=== PATIENT | male | born 1960 | race Caucasian/White ===

== ENCOUNTER 2016-07-23 20:21 | Emergency (ER) | payer BC, OTHER ==
[~2016-07-23] VITALS: Ht 162.6 cm; Wt 69.0 kg
[2016-07-23 20:31] VITALS: Ht 162.6 cm; Wt 69.0 kg
[2016-07-23] MEDS ORDERED: CEFTRIAXONE 1 GM INJ IM ONE (22:00)
--- NOTE | 2016-07-23 23:01 | RADRPT ---
PROCEDURE: X-ray left foot CLINICAL INDICATION: Nail in the left foot TECHNIQUE: 3 views left foot. COMPARISON: None FINDINGS: No acute fracture or dislocation. Soft tissues unremarkable. No evident retained radiopaque foreign material in the soft tissues of the left foot. IMPRESSION: 1. No evident retained radiopaque foreign material in the soft tissues of the left foot. 2. No acute fracture. RPTAT: [facility] Physician Sheree Date Time Electronically viewed and signed by Marcial Tyson Physician on 07/23/2016 23:00 RS/
[2016-07-23] MEDS ORDERED: CEPH-443 PO (23:43)
[2016-07-23] MEDS ORDERED: SULF1TAB31 PO (23:43)
--- NOTE | 2016-07-23 23:54 | ERD ---
ER Documentation Chief Complaint Date/Time DATE: 07/23/16 TIME: 23:49 Chief Complaint Pt with nail puncture to L foot today. Tetanus shot 5 months ago. HPI This is a 56-year-old male presents to the ER after he got a puncture wound to his left foot. 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 Patient is diabetic and is unable to feel any pain. She notes that he was bleeding Saturday night and noticed the nail. This morning patient's was looking at patient's foot and noticed that there was yellow discharge and redness to the area. Patient has not had any fevers or chills. Patient has a recent tetanus shot that was given to him 5 months ago. Patient is compliant with his medications. ROS 12 point review of systems was done, all negative except per HPI. Medications Home Meds Active Scripts Cephalexin* (Keflex*) 500 Mg Capsule, 500 MG PO BID for 7 Days, CAP Prov:BARBRA DURAN 07/23/16 Sulfamethoxazole/Trimethoprim* (Bactrim Ds* Tablet) 1 Each Tablet, 1 TAB PO BID , #7 TAB Prov:BARBRA DURAN 07/23/16 PMhx/Soc History of Surgery: No Anesthesia Reaction: No Hx Neurological Disorder: No Hx Respiratory Disorders: No Hx Cardiac Disorders: Yes (HTN) Hx Psychiatric Problems: No Hx Miscellaneous Medical Probl: Yes (DM, NEUROPATHY.) Hx Alcohol Use: Yes (OCC) Hx Substance Use: No Hx Tobacco Use: No Smoking Status: Never smoker Physical Exam Vitals Vital Signs Date Time Temp Pulse Resp B/P Pulse Ox O2 Delivery O2 Flow Rate FiO2 07/23/16 20:31 97.9 96 18 183/104 97 Physical Exam GENERAL: The patient is well developed and appropriate for usual state of health , in no apparent distress. HEENT: Atraumatic. CHEST: Clear to auscultation bilaterally. There are no rales, wheezes or rhonchi. HEART: Regular rate and rhythm. No murmurs, clicks, rubs or gallops. ABDOMEN: Soft, nontender and nondistended. Good bowel sounds. No rebound or guarding. No gross peritonitis. No gross organomegaly or masses. No Tirado sign or McBurney point tenderness. BACK: No midline or flank tenderness. EXTREMITIES: +2 dorsalis pedis and posterior tibialis pulses. No focal swelling or erythema. Full range of motion. Grossly neurovascularly intact. NEURO: Alert and oriented. SKIN: There is a puncture wound the middle of the plantar foot with surrounding erythema and some yellow discharge. Results 24 hrs Current Medications Medications (Trade) Dose Ordered Sig/Grace Route PRN Reason Start Time Stop Time Status Last Admin Dose Admin Ceftriaxone Sodium (Rocephin) 1 gm ONCE ONCE IM 07/23/16 22:00 07/23/16 22:02 DC 07/23/16 22:16 Procedures/MDM This is a 56-year-old male presents to the ER with a puncture wound to his left foot. Patient is diabetic and I am concerned that this may become a serious cellulitic infection. She was given a shot of Rocephin here in the ER. He will be sent home with both Bactrim and Keflex. He was told to return to ER in 48 hours for recheck. At this time patient is afebrile and well-appearing. I doubt sepsis,, deep space infection, osteomyelitis. There is no evidence of fractures or dislocations on x-ray. Patient needs to return to ER sooner if symptoms worsen. He also needs to follow-up with his primary care doctor within 1-2 days. My medical decision making was shared with the patient he understands and agrees with plan. Patient was also given information for the amputation prevention center for further care, as this may take a while to heal. Departure Diagnosis: Primary Impression: Cellulitis Condition: Stable Patient Instructions: Cellulitis Referrals: [facility] Additional Instructions: Regrese a estas instalaciones dentro de [facility] para un examen de seguimiento.Regrese antes si sawant condicin se empeora. BARBRA DURAN July 23, 2016 23:54
[2016-07-23 23:55] VITALS: BP 138/89; PULSE 78; RESP 20; TEMP 98.3
== END 2016-07-23 23:56 | disposition home or self-care (01) ==
LOC: FTE 20:21
DX: L03.116 Cellulitis of left lower limb (principal); I10 Essential (primary) hypertension; E11.9 Type 2 diabetes mellitus without complications
CPT/HCPCS: 73630; 96372; J0696; Z7502

== ENCOUNTER 2016-08-31 19:26 | Inpatient (IN) | payer BC ==
[~2016-08-31] VITALS: Ht 172.7 cm; Wt 69.5 kg
[~2016-08-31 19:26] MED LIST: CEPH-443 PO; SULF1TAB31 PO
[2016-08-31] MEDS ORDERED: VANCOMYCIN 1 GM (PMX) 250 ML IVPB ONE (20:30)
[2016-08-31] MEDS ORDERED: PIPER-TAZO 3.375 GM IV (PMX) 100 ML IVPB ONE (20:30)
[2016-08-31] MEDS ORDERED: IBUPROFEN 600 MG TAB PO ONE (20:30)
[2016-08-31] MEDS ORDERED: SOD CHLORIDE 0.9% 2,110 ML IV ONE (20:30)
[2016-08-31 20:36] LABS: ADD SCAN DIFF NO
[2016-08-31 20:39] LABS: BASOPHILS % 0.2 % (0.0-2.0); EOSINOPHILS # 0.3 10^3/ul (0.0-0.5); EOSINOPHILS % 2.1 % (0.0-7.0); HEMATOCRIT 35.5 % (42.0-52.0); LYMPHOCYTES # 1.6 10^3/ul (0.8-2.9); LYMPHOCYTES % 10.8 % (15.0-51.0); MEAN CORPUSCULAR HEMOGLOBIN 30.7 pg (29.0-33.0); MEAN CORPUSCULAR HGB CONC 33.8 g/dl (32.0-37.0); MEAN CORPUSCULAR VOLUME 90.8 fl (82.0-101.0); MEAN PLATELET VOLUME 10.2 fl (7.4-10.4); MONOCYTE # 1.3 10^3/ul (0.3-0.9); MONOCYTES % 8.7 % (0.0-11.0); NEUTROPHIL # 11.7 10^3/ul (1.6-7.5); NEUTROPHILS % 77.7 % (39.0-77.0); PLATELET COUNT 214 10^3/UL (140-415); RED BLOOD COUNT 3.91 10^6/ul (4.70-6.10); RED CELL DISTRIBUTION WIDTH 13.2 % (11.5-14.5); WHITE BLOOD COUNT 15.1 10^3/ul (4.8-10.8)
[2016-08-31 20:53] LABS: INR 0.94; PROTIME 12.6 Sec (12.2-14.2)
[2016-08-31 20:54] LABS: PARTIAL THROMBOPLASTIN TIME 31.3 Sec (25.0-35.0)
[2016-08-31 20:59] LABS: ALBUMIN/GLOBULIN RATIO 1.65
[2016-08-31 21:03] LABS: ALBUMIN 4.8 g/dl (3.3-4.9); BILIRUBIN,INDIRECT 0.7 mg/dl (0-1.1); BILIRUBIN,TOTAL 0.7 mg/dl (0.2-1.3); CALCIUM 9.8 mg/dl (8.4-10.2); CREATININE 1.25 mg/dl (0.61-1.24); POTASSIUM 3.9 mmol/L (3.5-5.1); TOTAL PROTEIN 7.7 g/dl (6.1-8.1)
--- NOTE | 2016-08-31 21:17 | RADRPT ---
PROCEDURE: XR Left Foot CLINICAL INDICATION: Puncture wound TECHNIQUE: AP, oblique, and lateral radiographs were submitted. COMPARISON: 07/23/2016 FINDINGS: Osseous structures: appear well mineralized and intact with no fracture or destructive process iden tified. There is mild calcaneal spurring at the insertion of the Achilles tendon and plantar aponeur osis. Joint spaces: are well maintained, with no significant spurring, erosion or joint effusion evident. Soft tissues: Minimal vascular calcification is evident. No radiopaque foreign body is identified. IMPRESSION: 1. Again no fracture or dislocation is evident. 2. Minimal calcaneal spurring 3. Mild vascular calcification 4. No radiopaque foreign body is evident. Physician Wes Date Time Electronically viewed and signed by Physician Wes on 08/31/2016 21:17 /
--- NOTE | 2016-08-31 21:18 | RADRPT ---
PROCEDURE: XR Chest AP portable CLINICAL INDICATION: Possible sepsis TECHNIQUE: An AP portable radiograph of the chest was submitted. COMPARISON: None. FINDINGS: Support Hardware: None Cardiovascular: The cardiovascular silhouette appears unremarkable. Lung Woo: Minimal discoid atelectasis is seen at the left lung base with the lung woo otherwis e clear. Pleural Spaces: No pneumothorax or pleural effusion is identified. Osseous Structures: The osseous structures appear intact. Soft Tissues: The soft tissues appear unremarkable. IMPRESSION: 1. Minimal discoid atelectasis seen at the left lung base. 2. Otherwise, unremarkable portable chest. Physician Wes Date Time Electronically viewed and signed by Physician Wes on 08/31/2016 21:17 /
[2016-08-31] MEDS ORDERED: SODIUM CHLORIDE 0.9% 1L BAG IV* STA (22:17)
--- NOTE | 2016-08-31 22:53 | ERA ---
ER Documentation Chief Complaint Date/Time DATE: 08/31/16 TIME: 22:53 Chief Complaint punctured wound left foot since 1 month ago HPI This 56-year-old female comes emergency room because he is having increasing left foot pain along the bottom of his foot as well as redness and fever. 1 month ago he had a puncture wound to his left foot with a nail. He was seen and treated with Bactrim and Keflex at that time. Patient seemed to resolve but then got worse again. He is diabetic and his only medication currently is metformin. ROS All systems reviewed and are negative except as per history of present illness. Medications Home Meds Reported Medications Valsartan* (Diovan*) 320 Mg Tablet, 320 MG PO QAM, TAB 08/31/16 Gabapentin* (Gabapentin*) 600 Mg Tablet, 600 MG PO BID, #60 TAB 08/31/16 Metformin* (Glucophage*) 1,000 Mg Tablet, 1000 MG PO BID, #60 TAB 08/31/16 Aspirin* (Aspirin* EC) 81 Mg Tablet.dr, 81 MG PO PRN, TAB 08/31/16 Ranitidine Hcl* (Ranitidine Hcl*) 150 Mg Tablet, 150 MG PO PRN, #30 TAB 08/31/16 Insulin Glargine* (Lantus*) 100 Unit/Ml Soln, 25 UNIT SC QAM Y for PRN, #1 VIAL 08/31/16 Discontinued Scripts Cephalexin* (Keflex*) 500 Mg Capsule, 500 MG PO BID for 7 Days, CAP Prov:ROGER,BARBRA C 07/23/16 Sulfamethoxazole/Trimethoprim* (Bactrim Ds* Tablet) 1 Each Tablet, 1 TAB PO BID , #7 TAB Prov:ROGER,BARBRA C 07/23/16 Allergies Allergies: Coded Allergies: No Known Allergy (Unverified , 08/31/16) PMhx/Soc History of Surgery: No Anesthesia Reaction: No Hx Neurological Disorder: No Hx Respiratory Disorders: No Hx Cardiac Disorders: Yes (HTN) Hx Psychiatric Problems: No Hx Miscellaneous Medical Probl: Yes (DM, NEUROPATHY.) Hx Alcohol Use: Yes (1 glass wine/ week) Hx Substance Use: No Hx Tobacco Use: Yes ("quit years ago") Smoking Status: Former smoker Physical Exam Vitals Vital Signs Date Time Temp Pulse Resp B/P Pulse Ox O2 Delivery O2 Flow Rate FiO2 6/23/17 23:16 98.3 103 22 165/99 100 Room Air 08/31/16 22:11 99.3 105 22 162/92 99 Room Air 08/31/16 19:29 101.0 102 20 121/69 100 Physical Exam Const: [] Mild distress Head: Atraumatic Eyes: Normal Conjunctiva ENT: Normal External Ears, Nose and Mouth. Neck: Full range of motion..~ No meningismus. Resp: Clear to auscultation bilaterally Cardio: Regular tachycardia no murmurs Abd: Soft, non tender, non distended. Normal bowel sounds Skin: No petechiae or rashes Back: No midline or flank tenderness Ext: No cyanosis, left foot with fairly well demarcated erythema along the portion of the sole and medial aspect of the left midfoot with prior puncture wound visible. There is mild swelling as well as calor and tenderness along this area. Neur: Awake and alert and oriented 3, no focal deficits Psych: Normal Mood and Affect Result Diagram: 08/31/16202908/31/16 2030 Results 24 hrs Laboratory Tests Test 08/31/16 20:30 08/31/16 22:23 White Blood Count 15.110^3/ul Red Blood Count 3.9110^6/ul Hemoglobin 12.0g/dl Hematocrit 35.5% Mean Corpuscular Volume 90.8fl Mean Corpuscular Hemoglobin 30.7pg Mean Corpuscular Hemoglobin Concent 33.8g/dl Red Cell Distribution Width 13.2% Platelet Count 13458^3/UL Mean Platelet Volume 10.2fl Neutrophils % 77.7% Lymphocytes % 10.8% Monocytes % 8.7% Eosinophils % 2.1% Basophils % 0.2% Nucleated Red Blood Cells % 0.0/100WBC Neutrophils # 11.710^3/ul Lymphocytes # 1.610^3/ul Monocytes # 1.310^3/ul Eosinophils # 0.310^3/ul Basophils # 0.010^3/ul Nucleated Red Blood Cells # 0.010^3/ul Prothrombin Time 12.6Sec Prothrombin Time Ratio 1.0 INR International Normalized Ratio 0.94 Activated Partial Thromboplast Time 31.3Sec Sodium Level 132mmol/L Potassium Level 3.9mmol/L Chloride Level 93mmol/L Carbon Dioxide Level 32mmol/L Anion Gap 11 Blood Urea Nitrogen 30mg/dl Creatinine 1.25mg/dl Glucose Level 279mg/dl Lactic Acid Level 1.8mmol/L 1.5mmol/L Calcium Level 9.8mg/dl Total Bilirubin 0.7mg/dl Direct Bilirubin 0.00mg/dl Indirect Bilirubin 0.7mg/dl Aspartate Amino Transf (AST/SGOT) 15IU/L Alanine Aminotransferase (ALT/SGPT) 24IU/L Alkaline Phosphatase 71IU/L Total Protein 7.7g/dl Albumin 4.8g/dl Globulin 2.90g/dl Albumin/Globulin Ratio 1.65 Current Medications Medications (Trade) Dose Ordered Sig/Grace Route PRN Reason Start Time Stop Time Status Last Admin Dose Admin Vancomycin HCl 250 ml @ 125 mls/hr ONCE ONCE IVPB 08/31/16 20:30 08/31/16 22:29 DC 08/31/16 21:11 Piperacillin Sod/ Tazobactam Sod (Zosyn 3.375gm/ 100 ml (Pmx)) 100 ml @ 200 mls/hr ONCE ONCE IVPB 08/31/16 20:30 08/31/16 20:59 DC 08/31/16 20:34 Ibuprofen 600 mg 600 mg ONCE ONCE PO 08/31/16 20:30 08/31/16 20:31 DC 08/31/16 20:34 Sodium Chloride (NS) 2,110 ml @ 2,110 mls/hr BOLUS X1 ONCE IV 08/31/16 20:30 08/31/16 21:29 DC 08/31/16 20:33 Sodium Chloride (NS) 2,110 ml BOLUS OVER 2 HOURS STAT IV* 08/31/16 22:17 08/31/16 22:20 DC 08/31/16 22:52 Procedures/MDM Cellulitis in a diabetic foot that failed outpatient treatment with sepsis with hyperglycemia.. Patient's workup began in ED 2 and was administered antibiotics prior to my arrival and prior to blood cultures. Was administered 30 cc/kg gram of IV fluid which will also help treat his hyper glycemia. Also given vacant Zosyn. Ibuprofen helped with his pain any stated he got minimal pain when he was not moving the foot or touching it. I spoke with Dr. Niño , orthopedist, who agrees to consult on the patient. I spoke with Dr. Moore will be admitting the patient to [facility]. library monitor interpretation: Sinus tachycardia followed by normal sinus rhythm without arrhythmia X-ray of right foot interpretation: No fracture dislocation or foreign body Chest x-ray interpretation: I see no acute process. I see no infiltrate, no pneumothorax, no pulmonary edema, no fractures Critical care time 33 minutes: This includes treatment of sepsis in a diabetic patient after failing outpatient treatment, careful fluid administration, repeat visits patient's bedside to reassess status, antibiotic review, chart review, discussion with patient, cash posting specialist, and admitting doctor. This does not include any billable procedures. Departure Diagnosis: Primary Impression: Sepsis due to cellulitis Additional Impressions: Hyperglycemia due to type 2 diabetes mellitus Failure of outpatient treatment Hyponatremia Renal insufficiency Condition: Serious AKI ROSALES DO Aug 31, 2016 22:53
[2016-08-31] MEDS ORDERED: ASPI-664 PO (23:07)
[2016-08-31] MEDS ORDERED: LANT3I SC (23:07)
[2016-08-31] MEDS ORDERED: GABA-526 PO (23:07)
[2016-08-31] MEDS ORDERED: VALS320T11 PO (23:07)
[2016-08-31] MEDS ORDERED: MTF1000T PO (23:07)
[2016-08-31] MEDS ORDERED: RANI150T5 PO (23:07)
[2016-08-31 23:16] VITALS: TEMP 98.3
[2016-09-01] MEDS ORDERED: SOD CHLORIDE 0.9% 1,000 ML IV SCH (00:48)
[2016-09-01] MEDS ORDERED: MAGNESIUM HYDROXIDE 30ML CUP PO PRN (01:00)
[2016-09-01] MEDS ORDERED: ASPIRIN (EC) 81 MG TAB PO PRN (01:00)
[2016-09-01] MEDS ORDERED: DOCUSATE SODIUM 100 MG CAP PO PRN (01:00)
[2016-09-01] MEDS ORDERED: ONDANSETRON 4 MG INJ IV PRN ×2 (01:00)
[2016-09-01] MEDS ORDERED: VANCOMYCIN IV PER PHARMACY XX SCH (01:00)
[2016-09-01] MEDS ORDERED: HYDROCODONE/APAP (5/325) TAB PO PRN (01:00)
[2016-09-01] MEDS ORDERED: NACL 0.9% 3 ML SYG IV SCH (01:00)
[2016-09-01] MEDS ORDERED: ACETAMINOPHEN 325 MG TAB PO PRN ×2 (01:00)
[2016-09-01] MEDS ORDERED: RANITIDINE 150 MG TAB PO PRN (01:00)
[2016-09-01] MEDS ORDERED: ZOLPIDEM 5 MG TAB PO PRN (01:00)
[2016-09-01] MEDS ORDERED: morphine 2 MG INJ IV PRN (01:00)
[2016-09-01 02:30] VITALS: BP 192/108; PULSE 95; RESP 18
[2016-09-01 03:30] VITALS: Ht 172.7 cm; Wt 69.5 kg
[2016-09-01] MEDS: hydrALAzine 20 MG INJ IV PRN (03:46)
[2016-09-01] MEDS: INSULIN GLARGINE [LANtus] 3 ML PEN SC SCH ×2 (03:51→20:40)
[2016-09-01 05:35] LABS: ADD SCAN DIFF NO
[2016-09-01 05:39] LABS: BASOPHIL # 0.1 10^3/ul (0.0-0.1); BASOPHILS % 0.4 % (0.0-2.0); EOSINOPHILS # 0.6 10^3/ul (0.0-0.5); EOSINOPHILS % 4.7 % (0.0-7.0); HEMATOCRIT 31.7 % (42.0-52.0); HEMOGLOBIN 10.4 g/dl (14.0-18.0); LYMPHOCYTES # 1.5 10^3/ul (0.8-2.9); LYMPHOCYTES % 12.6 % (15.0-51.0); MEAN CORPUSCULAR HEMOGLOBIN 29.9 pg (29.0-33.0); MEAN CORPUSCULAR HGB CONC 32.8 g/dl (32.0-37.0); MEAN CORPUSCULAR VOLUME 91.1 fl (82.0-101.0); MEAN PLATELET VOLUME 10.4 fl (7.4-10.4); MONOCYTE # 0.9 10^3/ul (0.3-0.9); MONOCYTES % 7.3 % (0.0-11.0); NEUTROPHILS % 74.6 % (39.0-77.0); PLATELET COUNT 184 10^3/UL (140-415); RED BLOOD COUNT 3.48 10^6/ul (4.70-6.10); RED CELL DISTRIBUTION WIDTH 13.1 % (11.5-14.5)
[2016-09-01 06:13] LABS: CALCIUM 8.2 mg/dl (8.4-10.2); CHOL/HDL RATIO 3.5 RATIO; CREATININE 0.89 mg/dl (0.61-1.24); MAGNESIUM 1.7 mg/dl (1.7-2.5); PHOSPHORUS 2.6 mg/dl (2.5-4.9); POTASSIUM 3.5 mmol/L (3.5-5.1)
--- NOTE | 2016-09-01 06:27 | HP ---
DATE OF ADMISSION: 08/31/2016 CHIEF COMPLAINT: Left foot pain. HISTORY OF PRESENT ILLNESS: The patient is a 56-year-old male with a history of insulin requiring d iabetes, hypertension. The patient presents with increasing left foot pain on the bottom of his delvis t with redness and fever. The patient had a puncture wound in his left foot with a nail 1 month ago . He was treated with Bactrim and Keflex at that time, and it seemed to resolve but then got worse. In regards to diabetes, he states at times he takes insulin and at times he takes metformin. He o nly takes insulin when his sugars are high. The patient has no other complaints at this time. He d enies any previous surgeries. 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 PAST MEDICAL HISTORY: Insulin-requiring diabetes, hypertension. ALLERGIES: NO KNOWN DRUG ALLERGIES. FAMILY HISTORY: Diabetes in multiple family members. SOCIAL HISTORY: Denies any alcohol abuse. Denies drug abuse. He used to smoke but quit many years ago. REVIEW OF SYSTEMS: A 12-point review of systems is negative except what is stated in the HPI. PHYSICAL EXAMINATION: VITAL SIGNS: Temperature is 98.3, T-max is 101.0, pulse 103, respiratory rate 22, blood pressure is 165/99, saturation 100% on room air. GENERAL: No acute distress, alert and oriented. HEENT: Normocephalic, atraumatic. LUNGS: Clear to auscultation. CARDIOVASCULAR: Regular rate and rhythm. ABDOMEN: Nondistended, nontender, soft. EXTREMITIES: No clubbing, cyanosis, or edema. Left foot plantar surface is notable for erythema wi th a puncture wound. LABORATORIES: White count 16.1, hemoglobin 12.0, platelets are 214. Chemistry within normal limits except for sodium 132, chloride 93, carbon dioxide 32, BUN is 30, creatinine is 1.25, glucose 79. INR is 0.94. DIAGNOSTICS: Foot x-ray shows no fracture or dislocation noted, minimal calcaneal spurring, mild va scular congestion, no radiopaque foreign body evident. Chest x-ray shows minimal discoid atelectasi s seen at the left lung base, otherwise unremarkable. ASSESSMENT AND PLAN: 1. Diabetic foot infection. The patient does have erythema in the left foot plantar surface. The patient will need IV antibiotics. ID consult and podiatry consultation. 2. Sepsis secondary to diabetic foot infection. The patient does meat criteria for sepsis with tac hycardia, fever, and leukocytosis. Once again, sepsis is secondary to diabetic foot infection. 3. Acute versus chronic kidney disease. The patient does have kidney disease. He likely does have underlying diabetic nephropathy. We will treat with IV fluids for now and monitor. 4. Diabetes. Continue home regimen. We will check an A1c. 5. Hypertension. Continue home medications. 6. Prophylaxis: SCDs. Dictated By: CHERRI LOVETT MD BS/NTS Conf#: [id number] DID#: [id number]
[2016-09-01] MEDS: PIPER-TAZO 3.375 GM IV (PMX) 100 ML IVPB SCH ×3 (06:28→17:29)
[2016-09-01 07:00] VITALS: BP 167/91; RESP 20
[2016-09-01] MEDS: INSULIN ASPART [NOVOLOG] 3 ML PEN SC SCH ×4 (07:50→20:40)
[2016-09-01] MEDS ORDERED: INSULIN ASPART [NOVOLOG] 3 ML PEN SC SCH (07:50)
[2016-09-01] MEDS ORDERED: VANCOMYCIN 1 GM in NS 250 ML IVPB SCH (08:00)
[2016-09-01] MEDS: VALSARTAN 160 MG TAB PO SCH (08:20)
[2016-09-01] MEDS: GABAPENTIN 300 MG CAP PO SCH ×2 (08:20→20:34)
--- NOTE | 2016-09-01 10:08 | CONS ---
DATE OF ADMISSION: 08/31/2016 DATE OF CONSULTATION: TYPE OF CONSULTATION: Orthopedic CHIEF COMPLAINT: Left foot infection. HISTORY OF PRESENT ILLNESS: The patient is a 56-year-old male diabetic, who a month ago had a punct ure wound to the foot. The patient initially seen in the emergency room and treated with oral antib iotics. The patient is now admitted due to persisting pain and swelling. Currently, patient is com fortable. He is afebrile. He denies any fever or chills. He has not had any drainage. He is ambu latory. His temperature is 98.3. White cell count 16.1. X-ray is negative for any foreign body, o r osteomyelitis, or any swelling. PHYSICAL EXAMINATION: There is no drainage. There is a healed scab on the bottom of the mid foot. There is slight surrounding redness. No fluctuance. No palpable abscess. The patient has no pain on flexion, extension of the toes and the ankle. IMPRESSION: Cellulitis, left foot. RECOMMENDATION: Continue IV antibiotic treatment. At this point, there is no indication of any abs cess that would require drainage. We will continue to monitor his progress. Dictated By: TERESA CUNNINGHAM/ADARSH Conf#: [id number] DID#: [id number]
--- NOTE | 2016-09-01 11:26 | PN ---
Date/Time of Note Date/Time of Note DATE: 09/01/16 TIME: 11:17 Assessment/Plan VTE Prophylaxis VTE Prophylaxis Intervention: SCD's Lines/Catheters IV Catheter Type (from Rust): Peripheral IV Urinary Cath still in place: No Assessment/Plan Assessment/Plan 1. Diabetic foot infection. left plantal surface erythema with possible fluid collection underneath, concerned about abscess 2. Sepsis 2/2 left foot cellulitis/abscess 3. BRENDEN on CKD 2/2 pre renal azotemia 4. Diabetes type II 5. Hypertension. Continue home medications. 6. Prophylaxis: SCDs podiatry consult Dr.Robert Diaz has been consulted on the case IV abx D/c IV fluids Subjective 24 Hr Interval Summary Free Text/Dictation no acute events, S/p Orthopedic surgery consultatio- no acute distress Exam/Review of Systems Vital Signs Vitals Vital Signs Date Time Temp Pulse Resp B/P Pulse Ox O2 Delivery O2 Flow Rate FiO2 09/01/16 07:00 97.5 92 20 167/91 98 09/01/16 02:30 Room Air Intake and Output 08/31/16 08/31/16 09/01/16 15:00 23:00 07:00 Intake Total 540 ml Output Total 600 ml Balance -60 ml Exam GENERAL: No acute distress, alert and oriented. HEENT: Normocephalic, atraumatic. LUNGS: Clear to auscultation. CARDIOVASCULAR: Regular rate and rhythm. ABDOMEN: Nondistended, nontender, soft. EXTREMITIES: No clubbing, cyanosis, or edema. Left foot plantar surface is notable for erythema with a puncture wound. Results Result Diagram: 09/01/16 0512 09/01/16 0512 Results 24 hrs Laboratory Tests Test 08/31/16 20:30 08/31/16 22:23 09/01/16 00:10 09/01/16 03:47 White Blood Count 15.1 H Red Blood Count 3.91 L Hemoglobin 12.0 L Hematocrit 35.5 L Mean Corpuscular Volume 90.8 Mean Corpuscular Hemoglobin 30.7 Mean Corpuscular Hemoglobin Concent 33.8 Red Cell Distribution Width 13.2 Platelet Count 214 Mean Platelet Volume 10.2 Neutrophils % 77.7 H Lymphocytes % 10.8 L Monocytes % 8.7 Eosinophils % 2.1 Basophils % 0.2 Nucleated Red Blood Cells % 0.0 Neutrophils # 11.7 H Lymphocytes # 1.6 Monocytes # 1.3 H Eosinophils # 0.3 Basophils # 0.0 Nucleated Red Blood Cells # 0.0 Prothrombin Time 12.6 Prothrombin Time Ratio 1.0 INR International Normalized Ratio 0.94 Activated Partial Thromboplast Time 31.3 Sodium Level 132 L Potassium Level 3.9 Chloride Level 93 L Carbon Dioxide Level 32 H Anion Gap 11 Blood Urea Nitrogen 30 H Creatinine 1.25 H Glucose Level 279 H Lactic Acid Level 1.8 1.5 1.9 Calcium Level 9.8 Total Bilirubin 0.7 Direct Bilirubin 0.00 Indirect Bilirubin 0.7 Aspartate Amino Transf (AST/SGOT) 15 Alanine Aminotransferase (ALT/SGPT) 24 Alkaline Phosphatase 71 Total Protein 7.7 Albumin 4.8 Globulin 2.90 Albumin/Globulin Ratio 1.65 Bedside Glucose 134 Test 09/01/16 05:12 09/01/16 08:19 09/01/16 09:16 White Blood Count 12.0 #H Red Blood Count 3.48 L Hemoglobin 10.4 L Hematocrit 31.7 L Mean Corpuscular Volume 91.1 Mean Corpuscular Hemoglobin 29.9 Mean Corpuscular Hemoglobin Concent 32.8 Red Cell Distribution Width 13.1 Platelet Count 184 Mean Platelet Volume 10.4 Neutrophils % 74.6 Lymphocytes % 12.6 L Monocytes % 7.3 Eosinophils % 4.7 Basophils % 0.4 Nucleated Red Blood Cells % 0.0 Neutrophils # 9.0 H Lymphocytes # 1.5 Monocytes # 0.9 Eosinophils # 0.6 H Basophils # 0.1 Nucleated Red Blood Cells # 0.0 Sodium Level 138 Potassium Level 3.5 Chloride Level 106 # Carbon Dioxide Level 26 Anion Gap 10 Blood Urea Nitrogen 19 # Creatinine 0.89 Glucose Level 162 # Hemoglobin A1c 11.0 H Lactic Acid Level 0.8 Calcium Level 8.2 L Phosphorus Level 2.6 Magnesium Level 1.7 Triglycerides Level 83 Cholesterol Level 138 LDL Cholesterol, Calculated 82 HDL Cholesterol 39 Cholesterol/HDL Ratio 3.5 Bedside Glucose 85 125 Medications Medications Current Medications Sodium Chloride (NS) 1,000 ml @ 100 mls/hr Q10H IV Last administered on t 02:25; Admin Dose 100 MLS/HR; Start 09/01/16 at 00:48 Ondansetron HCl (Zofran Inj) 4 mg Q6H PRN IV NAUSEA AND/OR VOMITING; Start at 01:00 Acetaminophen (Tylenol Tab) 650 mg Q6H PRN PO PAIN LEVEL 1-3 OR FEVER; Start at 01:00 Acetaminophen/ Hydrocodone Bitart ([place] (5/325)) 1 tab Q6H PRN PO MODERATE PAIN LEVEL 4-6; Start 09/01/16 at 01:00 Morphine Sulfate (morphine) 2 mg Q4H PRN IV SEVERE PAIN LEVEL 7-10; Start 09/01 at 01:00 Docusate Sodium (Colace) 100 mg Q12H PRN PO CONSTIPATION; Start 09/01/16 at 01: 00 Magnesium Hydroxide (Milk Of Mag) 30 ml DAILY PRN PO CONSTIPATION; Start at 01:00 Zolpidem Tartrate 5 mg 5 mg QHS PRN PO SLEEP; Start 09/01/16 at 01:00 Piperacillin Sod/ Tazobactam Sod (Zosyn 3.375gm/ 100 ml (Pmx)) 100 ml @ 200 mls /hr Q6 IVPB Last administered on 09/01/16 06:28; Admin Dose 200 MLS/HR; Start 09/01/16 at 06:00 Aspirin (Halfprin) 81 mg PRN PRN PO IF NEEDED; Start 09/01/16 at 01:00 Gabapentin (Neurontin) 600 mg BID PO Last administered on 09/01/16 08:20; Admin Dose 600 MG; Start 09/01/16 at 09:00 Ranitidine HCl (Zantac) 150 mg PRN PRN PO HEARTBURN; Start 09/01/16 at 01:00 Valsartan (Diovan) 320 mg QAM PO Last administered on 09/01/16 08:20; Admin Dose 320 MG; Start 09/01/16 at 09:00 Insulin Glargine 15 unit 15 unit DAILY@20 SC Last administered on 09/01/16 03: 51; Admin Dose 15 UNIT; Start 09/01/16 at 01:00 Vancomycin HCl (Vancocin) 250 ml @ 125 mls/hr Q12H IVPB Last administered on 08:19; Admin Dose 125 MLS/HR; Start 09/01/16 at 08:00; Stop 09/01/16 at 12:00 Hydralazine HCl 10 mg 10 mg Q6H PRN IV ELEVATED SYSTOLIC BP Last administered on 09/01/16t 03:46; Admin Dose 10 MG; Start 09/01/16 at 02:50 Vancomycin HCl/ Sodium Chloride (Vancocin/NS) 250 ml @ 83.333 mls/ hr Q12H IVPB ; Start 09/01/16 at 18:00 JOSÉ TODD MD Sep 01, 2016 11:26
--- NOTE | 2016-09-01 13:11 | CONS ---
DATE OF ADMISSION: 08/31/2016 DATE OF CONSULTATION: 09/01/2016 INFECTIOUS DISEASE CONSULTATION REASON FOR CONSULTATION: Antibiotic management. HISTORY OF PRESENT ILLNESS: Dylan Omalley a 56-year-old male who was admitted with left foot pain and is being seen for antibiotic management. His past problems include: 1. Insulin-dependent diabetes mellitus. 2. Hypertension. 3. Increasing left foot pain on the plantar aspect of his foot with redness and fever. Patient had a puncture wound to the left foot by a nail 1 month ago. He was treated with Bactrim and Keflex at that time and the problem seemed to resolve, but then worsened. The patient takes insulin and also metformin. On admission, his white count was 15.1, H and H of 12 and 35.5, platelet count of 30.8. Today, his white count is 12, BUN and creatinine are 19/0.89. His chest x-ray: Minimal discoid a telectasis seen at the left lung base, otherwise unremarkable portable chest. His foot x-ray shows no fracture or dislocation, minimal calcaneal spurring, mild vascular calcification, no radiopaque f oreign body is evident. PAST MEDICAL HISTORY: Operations as outlined. FAMILY HISTORY: Noncontributory. SOCIAL HISTORY: He used to smoke, but quit many years ago. Does not drink or abuse drugs. ALLERGIES: NONE TO PENICILLIN, SULFA OR FOODS. MEDICATIONS: Per chart. REVIEW OF SYSTEMS: Noncontributory. PHYSICAL EXAMINATION: GENERAL: The patient is a well-developed, well-nourished male, awake, responsive, in no acute distr ess. VITAL SIGNS: Stable. T-max 101 degrees. SKIN: Without generalized rash. HEENT: Within normal limits. NECK: Supple. LYMPH NODES: None palpable. CHEST: Decreased breath sounds at the bases. HEART: Without murmur or gallop. ABDOMEN: Soft, nontender, without organosplenomegaly or masses. EXTREMITIES: He has erythema and a puncture wound, left plantar aspect of his foot. IMPRESSION AND PLAN: The patient has erythema of the left foot. I will get a meter repairer helper to take a look at him. He was started on vancomycin and also on Zosyn. We may want to consider an MRI scan i f the patient does not improve rapidly. I will dictate my findings to the hospitalist. Dictated By: DOUGIE PHELPS MD, JD/ADARSH Conf#: [id number] DID#: [id number]
[2016-09-01] MEDS: VANCOMYCIN 1.25 GM in SOD CHLORIDE 0.9% 250 ML IVPB SCH (18:08)
[2016-09-01 20:04] VITALS: BP_DIAS 87; RESP 22
[2016-09-01 20:15] VITALS: BP 131/67; PULSE 91; RESP 18
[2016-09-02] MEDS: PIPER-TAZO 3.375 GM IV (PMX) 100 ML IVPB SCH ×3 (00:39→12:08)
[2016-09-02 04:56] LABS: ADD SCAN DIFF NO
[2016-09-02 05:01] LABS: BASOPHILS % 0.4 % (0.0-2.0); EOSINOPHILS # 0.9 10^3/ul (0.0-0.5); EOSINOPHILS % 7.8 % (0.0-7.0); HEMATOCRIT 31.8 % (42.0-52.0); HEMOGLOBIN 10.4 g/dl (14.0-18.0); LYMPHOCYTES % 17.9 % (15.0-51.0); MEAN CORPUSCULAR HEMOGLOBIN 29.6 pg (29.0-33.0); MEAN CORPUSCULAR HGB CONC 32.7 g/dl (32.0-37.0); MEAN CORPUSCULAR VOLUME 90.6 fl (82.0-101.0); MEAN PLATELET VOLUME 9.8 fl (7.4-10.4); MONOCYTE # 1.1 10^3/ul (0.3-0.9); MONOCYTES % 9.8 % (0.0-11.0); NEUTROPHILS % 63.7 % (39.0-77.0); PLATELET COUNT 195 10^3/UL (140-415); RED BLOOD COUNT 3.51 10^6/ul (4.70-6.10); RED CELL DISTRIBUTION WIDTH 12.8 % (11.5-14.5); WHITE BLOOD COUNT 10.9 10^3/ul (4.8-10.8)
[2016-09-02 05:22] LABS: INR 1.09; PARTIAL THROMBOPLASTIN TIME 32.3 Sec (25.0-35.0); PROTIME 14.1 Sec (12.2-14.2); PT RATIO 1.1
[2016-09-02 05:41] LABS: CALCIUM 8.8 mg/dl (8.4-10.2); CREATININE 0.99 mg/dl (0.61-1.24); POTASSIUM 4.2 mmol/L (3.5-5.1)
[2016-09-02] MEDS: VANCOMYCIN 1.25 GM in SOD CHLORIDE 0.9% 250 ML IVPB SCH ×2 (06:45→18:06)
[2016-09-02] MEDS: INSULIN ASPART [NOVOLOG] 3 ML PEN SC SCH ×4 (07:50→21:18)
[2016-09-02 08:00] VITALS: BP 160/87; RESP 18
[2016-09-02] MEDS: GABAPENTIN 300 MG CAP PO SCH ×2 (08:25→20:51)
[2016-09-02] MEDS: VALSARTAN 160 MG TAB PO SCH (08:25)
--- NOTE | 2016-09-02 10:11 | PN ---
DATE: 09/02/2016 SUBJECTIVE DATA: Blood sugars well controlled today morning. Denies any left foot pain. OBJECTIVE DATA: VITAL SIGNS: Temperature 99.0, pulse is 79, respiratory rate 18, blood pressure 160/87, oxygen saturation 98% on room air. GENERAL: This is a well-built, well-nourished 54-year-old male, lying in bed in no apparent distress. HEENT: Head normocephalic and atraumatic. Eyes: Anicteric sclerae. Conjunctivae clear. ENT: Nasal septum is midline. Oral mucosa is moist. NECK: Supple. No JVD noticed. RESPIRATORY: Bilaterally clear to auscultation. No adventitious breath sounds heard. No use of accessory muscles of respiration. CARDIAC: Regular rate and rhythm. No murmurs heard. ABDOMEN: Soft, nontender and nondistended. Bowel sounds positive in all 4 quadrants. GENITOURINARY: Deferred. EXTREMITIES: No cyanosis, no clubbing, no edema. Peripheral pulses palpable. Left foot plantar surface erythema with a spur, nontender. NEUROLOGIC: The patient is awake, alert, and oriented. Cranial nerves are grossly intact. LABORATORY AND DIAGNOSTIC DATA: WBC 10.9, hemoglobin 10.4, hematocrit 31.8, platelet count 195. Sodium 139, potassium 4.0, chloride 104, carbon dioxide 29 , anion gap 10, BUN 11, creatinine 0.9, glucose 136, calcium 8.8. ASSESSMENT AND PLAN: 1. Left foot plantar area cellulitis. Continue antibiotics as per infectious diseases. Status post evaluation by orthopedic surgery. Podiatry evaluation pending. 2. Sepsis secondary to left plantar cellulitis. No evidence of septic shock. Continue antibiotics. 3. Type 2 diabetes mellitus. Hemoglobin A1c 11.0. Continue sliding scale insulin. 4. Essential hypertension. Continue antihypertensives including p.r.n. antihypertensives for systolic blood pressure readings greater than 160 mmHg. 5. Diabetic neuropathy. Continue gabapentin. 6. Normocytic, normochromic anemia. Etiology unclear. We will do an iron panel. Monitor H and H closely. 7. Fluid, electrolytes, and nutrition. Carbohydrate controlled diet. 8. Deep venous thrombosis prophylaxis. Subcutaneous Lovenox. 9. Gastrointestinal prophylaxis. Histamine 2 receptor blockers. PLAN: Continue antibiotics as per Infectious Disease. Awaiting podiatry evaluation. Continue tight blood sugar control. Case discussed with Dr. Luna. ZACHARY LUNA MD, AM/ADARSH Conf#: [id number] [facility]#: [id number] MTDD
[2016-09-02] MEDS: ENOXAPARIN 40 MG/0.4 ML SYG SC SCH (10:21)
[2016-09-02 10:31] LABS: IRON 19 ug/dl (35-150)
[2016-09-02 10:41] LABS: TOTAL IRON BINDING CAPACITY 223 ug/dl (241-421)
[2016-09-02] MEDS: CHOLECALCIFEROL 2,000 UNIT CAP PO SCH (12:20)
[2016-09-02] MEDS: SOD FERRIC GLUC COMPLX 125 MG in SOD CHLORIDE 0.9% 100 ML IVPB SCH (14:29)
[2016-09-02] MEDS ORDERED: LEVOFLOXACIN 500 MG TAB PO ONE (17:30)
[2016-09-02 19:16] VITALS: BP 171/86; RESP 18
[2016-09-02] MEDS: INSULIN GLARGINE [LANtus] 3 ML PEN SC SCH (21:19)
[2016-09-03 05:19] LABS: ADD SCAN DIFF NO
[2016-09-03 05:32] LABS: BASOPHILS % 0.4 % (0.0-2.0); EOSINOPHILS # 0.7 10^3/ul (0.0-0.5); EOSINOPHILS % 8.5 % (0.0-7.0); HEMATOCRIT 31.9 % (42.0-52.0); HEMOGLOBIN 10.5 g/dl (14.0-18.0); LYMPHOCYTES # 1.7 10^3/ul (0.8-2.9); LYMPHOCYTES % 21.5 % (15.0-51.0); MEAN CORPUSCULAR HEMOGLOBIN 29.9 pg (29.0-33.0); MEAN CORPUSCULAR HGB CONC 32.9 g/dl (32.0-37.0); MEAN CORPUSCULAR VOLUME 90.9 fl (82.0-101.0); MONOCYTE # 0.9 10^3/ul (0.3-0.9); MONOCYTES % 11.4 % (0.0-11.0); NEUTROPHIL # 4.5 10^3/ul (1.6-7.5); NEUTROPHILS % 57.8 % (39.0-77.0); PLATELET COUNT 222 10^3/UL (140-415); RED BLOOD COUNT 3.51 10^6/ul (4.70-6.10); RED CELL DISTRIBUTION WIDTH 12.6 % (11.5-14.5); WHITE BLOOD COUNT 7.8 10^3/ul (4.8-10.8)
[2016-09-03 05:56] LABS: MAGNESIUM 1.7 mg/dl (1.7-2.5); PHOSPHORUS 3.5 mg/dl (2.5-4.9)
[2016-09-03 05:59] LABS: CALCIUM 9.4 mg/dl (8.4-10.2); CREATININE 0.9 mg/dl (0.61-1.24)
[2016-09-03] MEDS: LEVOFLOXACIN 500 MG TAB PO SCH (06:03)
[2016-09-03] MEDS: VANCOMYCIN 1.25 GM in SOD CHLORIDE 0.9% 250 ML IVPB SCH (06:03)
[2016-09-03] MEDS ORDERED: DEXTROSE 50% 50 ML SYRINGE IV PRN ×2 (07:00)
[2016-09-03] MEDS ORDERED: GLUCAGON 1 MG INJ IM PRN (07:00)
[2016-09-03] MEDS ORDERED: GLUCOSE GEL 15 GRAM TUBE PO PRN ×2 (07:00)
[2016-09-03] MEDS ORDERED: GLUCOSE GEL 15 GRAM TUBE BUCCAL PRN (07:00)
--- NOTE | 2016-09-03 07:31 | PN ---
DATE: 09/02/2016 SUBJECTIVE: No acute changes. The patient is alert, feels good, looks comfortable, no fevers. WBC today 10.9, no shift, no bands. MICROBIOLOGY: Blood cultures, negative. ANTIMICROBIALS: The patient is on: 1. Vancomycin. 2. Zosyn. PHYSICAL EXAMINATION: GENERAL: A well-developed, well-nourished, middle-aged man who is alert, in no distress. HEENT: Head atraumatic, normocephalic. Sclerae anicteric. Buccal mucosa dry. NECK: Supple. CHEST: Rise symmetrical. Breath sounds clear. HEART: S1, S2. ABDOMEN: Soft, bowel tones present. EXTREMITIES: Left plantar area purulent drainage. ASSESSMENT: 1. Left foot cellulitis with draining self-draining abscess. 2. Systemic inflammatory response syndrome secondary to above. 3. Diabetes. 4. Hypertension. PLAN: The patient remains stable. I was able to squeeze significant amount of pus from the open ar ea on his sole. Drainage was sent for culture. We are going to discontinue Zosyn and put him on Le vaquin. Continue vancomycin and local wound care. Consider podiatry evaluation. Dictated By: REX NOBLE MAINTENANCE AND OPERATIONS SUPERVISOR for DOUGIE VERDIN/ADARSH Conf#: [id number] DID#: [id number]
[2016-09-03] MEDS: INSULIN ASPART [NOVOLOG] 3 ML PEN SC SCH ×4 (07:50→20:33)
[2016-09-03] MEDS: GABAPENTIN 300 MG CAP PO SCH ×2 (08:52→20:33)
[2016-09-03] MEDS: CHOLECALCIFEROL 2,000 UNIT CAP PO SCH (08:52)
[2016-09-03 08:53] VITALS: BP 133/75; RESP 18
[2016-09-03] MEDS: VALSARTAN 160 MG TAB PO SCH (08:53)
[2016-09-03] MEDS: ENOXAPARIN 40 MG/0.4 ML SYG SC SCH (08:57)
--- NOTE | 2016-09-03 13:52 | PN ---
Date/Time of Note Date/Time of Note DATE: 09/03/16 TIME: 13:51 Assessment/Plan VTE Prophylaxis VTE Prophylaxis Intervention: SCD's Lines/Catheters IV C[facility]ter Type [facility]from [facility] [facility] Urinary Cath still in place: No Assessment/Plan Chief Complaint/Hosp Course ASSESSMENT AND PLAN: 1. Left foot plantar area cellulitis. Continue antibiotics as per infectious diseases. Status post evaluation by orthopedic surgery. Podiatry consulted. 2. Sepsis secondary to left plantar cellulitis. No evidence of septic shock. Continue antibiotics. 3. Type 2 diabetes mellitus. Hemoglobin A1c 11.0. Continue sliding scale insulin. 4. Essential hypertension. Continue antihypertensives including p.r.n. antihypertensives for systolic blood pressure readings greater than 160 mmHg. 5. Diabetic neuropathy. Continue gabapentin. 6. Normocytic normochromic anemia. Etiology unclear. . Monitor H and H closely. Deep venous thrombosis prophylaxis. Subcutaneous Lovenox. Gastrointestinal prophylaxis. Histamine 2 receptor blockers. PLAN: Continue antibiotics as per Infectious Disease. Awaiting podiatry evaluation. Continue tight blood sugar control. Problems: Subjective 24 Hr Interval Summary Free Text/Dictation Patient denies any chest pain or shortness of breath Complains of having discomfort during ambulation No nausea vomiting diarrhea Denies of any pain in his left foot at rest Exam/Review of Systems Vital Signs Vitals Vital Signs Date Time Temp Pulse Resp B/P Pulse Ox O2 Delivery O2 Flow Rate FiO2 09/03/16 08:53 98.2 82 18 133/75 99 09/01/16 20:15 Room Air Intake and Output 09/02/16 09/02/16 09/03/16 15:00 23:00 07:00 Intake Total 350 ml 1560 ml 500 ml Balance 350 ml 1560 ml 500 ml Exam General: The patient is well-developed, Not in acute distress. HEENT: Atraumatic, normocephalic. The pupils are equal and round . Neck: Supple with full range of motion. Chest: Normal expansion of the thorax during inspiration Lungs: Clear to auscultation bilaterally Heart: Normal S1-S2, Regular rhythm and rate. Abdomen: Soft , nontender, nondistended , bowel sounds are present. Extremities: Abscess 22 cm at the dorsal aspect of the left foot, no edema no cyanosis Neurologic: Normal mental status,The patient is awake, alert and oriented . Results Result Diagram: 09/03/16 0430 09/03/16 0430 Results 24 hrs Laboratory Tests Test 09/02/16 16:53 09/02/16 17:29 09/02/16 21:15 09/03/16 01:25 Vancomycin Level Trough 15.3 Bedside Glucose 263 H 279 H 225 H Test 09/03/16 04:30 09/03/16 08:48 09/03/16 12:42 White Blood Count 7.8 # Red Blood Count 3.51 L Hemoglobin 10.5 L Hematocrit 31.9 L Mean Corpuscular Volume 90.9 Mean Corpuscular Hemoglobin 29.9 Mean Corpuscular Hemoglobin Concent 32.9 Red Cell Distribution Width 12.6 Platelet Count 222 Mean Platelet Volume 10.0 Neutrophils % 57.8 Lymphocytes % 21.5 Monocytes % 11.4 H Eosinophils % 8.5 H Basophils % 0.4 Nucleated Red Blood Cells % 0.0 Neutrophils # 4.5 Lymphocytes # 1.7 Monocytes # 0.9 Eosinophils # 0.7 H Basophils # 0.0 Nucleated Red Blood Cells # 0.0 Sodium Level 141 Potassium Level 4.0 Chloride Level 106 Carbon Dioxide Level 27 Anion Gap 12 Blood Urea Nitrogen 14 Creatinine 0.90 Glucose Level 157 Calcium Level 9.4 Phosphorus Level 3.5 Magnesium Level 1.7 Bedside Glucose 118 174 Medications Medications Current Medications Ondansetron HCl (Zofran Inj) 4 mg Q6H PRN IV NAUSEA AND/OR VOMITING; Start at 01:00 Acetaminophen (Tylenol Tab) 650 mg Q6H PRN PO PAIN LEVEL 1-3 OR FEVER Last administered on 09/01/16 15:05; Admin Dose 650 MG; Start 09/01/16 at 01:00 Acetaminophen/ Hydrocodone Bitart ([place] (5/325)) 1 tab Q6H PRN PO MODERATE PAIN LEVEL 4-6 Last administered on 09/01/16 21:35; Admin Dose 1 TAB; Start at 01:00 Morphine Sulfate (morphine) 2 mg Q4H PRN IV SEVERE PAIN LEVEL 7-10; Start 09/01 at 01:00 Docusate Sodium (Colace) 100 mg Q12H PRN PO CONSTIPATION; Start 09/01/16 at 01: 00 Magnesium Hydroxide (Milk Of Mag) 30 ml DAILY PRN PO CONSTIPATION; Start at 01:00 Zolpidem Tartrate (Ambien) 5 mg QHS PRN PO SLEEP; Start 09/01/16 at 01:00 Aspirin (Halfprin) 81 mg PRN PRN PO IF NEEDED; Start 09/01/16 at 01:00 Gabapentin (Neurontin) 600 mg BID PO Last administered on 09/03/16 08:52; Admin Dose 600 MG; Start 09/01/16 at 09:00 Ranitidine HCl (Zantac) 150 mg PRN PRN PO HEARTBURN; Start 09/01/16 at 01:00 Valsartan (Diovan) 320 mg QAM PO Last administered on 09/03/16 08:53; Admin Dose 320 MG; Start 09/01/16 at 09:00 Insulin Glargine (Lantus) 15 unit DAILY@20 SC Last administered on 09/02/16 21 :19; Admin Dose 15 UNIT; Start 09/01/16 at 01:00 Hydralazine HCl 10 mg 10 mg Q6H PRN IV ELEVATED SYSTOLIC BP Last administered on 09/01/16 03:46; Admin Dose 10 MG; Start 09/01/16 at 02:50 Vancomycin HCl/ Sodium Chloride (Vancocin/NS) 250 ml @ 83.333 mls/ hr Q12H IVPB Last administered on 09/03/16 06:03; Admin Dose 83.333 MLS/HR; Start at 18:00 Enoxaparin Sodium 40 mg 40 mg DAILY SC Last administered on 09/03/16 08:57; Admin Dose 40 MG; Start 09/02/16 at 10:00 Ferric Sodium Gluconate Complex/ Sodium Chloride (Ferrlecit/NS) 110 ml @ 110 mls/hr Q24H IVPB Last administered on 09/02/16 14:29; Admin Dose 110 MLS/HR; Start 09/02/16 at 15:00; Stop 09/06/16 at 15:59 Cholecalciferol (Vitamin D) 2,000 unit DAILY PO Last administered on 09/03/16 08:52; Admin Dose 2,000 UNIT; Start 09/02/16 at 12:30 Levofloxacin (Levaquin) 500 mg DAILY@06 PO Last administered on 09/03/16 06:03 ; Admin Dose 500 MG; Start 09/03/16 at 06:00 Miscellaneous Information 1 ea NOTE XX ; Start 09/03/16 at 07:00 Glucose (Glutose) 15 gm Q15M PRN PO DECREASED GLUCOSE; Start 09/03/16 at 07:00 Glucose (Glutose) 22.5 gm Q15M PRN PO DECREASED GLUCOSE; Start 09/03/16 at 07: 00 Dextrose (D50w Syringe) 25 ml Q15M PRN IV DECREASED GLUCOSE; Start 09/03/16 at 07:00 Dextrose (D50w Syringe) 50 ml Q15M PRN IV DECREASED GLUCOSE; Start 09/03/16 at 07:00 Glucagon (Glucagen) 1 mg Q15M PRN IM DECREASED GLUCOSE; Start 09/03/16 at 07:00 Glucose (Glutose) 15 gm Q15M PRN BUCCAL DECREASED GLUCOSE; Start 09/03/16 at 07 :00 DANY LARES MD Sep 03, 2016 13:52
[2016-09-03] MEDS: SOD FERRIC GLUC COMPLX 125 MG in SOD CHLORIDE 0.9% 100 ML IVPB SCH (15:43)
[2016-09-03] MEDS: VANCOMYCIN 1 GM in NS 250 ML IVPB SCH (17:46)
--- NOTE | 2016-09-03 19:08 | PN ---
DATE: 09/03/2016 SUBJECTIVE: No acute changes. The patient is alert, feels good, looks comfortable. No fevers. Vi tati signs stable. Left lower extremity looks slightly better, still with significant erythema. LABORATORY DATA: WBC today 7.9, no shift, no bands. BUN 14, creatinine 0.90. MICROBIOLOGY: Wound culture growing Staphylococcus aureus preliminary. ANTIMICROBIALS: The patient is on: 1. IV vancomycin. 2. Levaquin. PHYSICAL EXAMINATION: GENERAL: Well-developed, middle-aged man who is alert, in no distress. HEENT: Head atraumatic, normocephalic. Sclerae anicteric. Buccal mucosa pink. NECK: Supple. CHEST: Rise symmetrical. Breath sounds clear. HEART: S1, S2. ABDOMEN: Soft. Bowel tones present. EXTREMITIES: No cyanosis. Again, left foot with erythema, no drainage, on the sole. ASSESSMENT: 1. Left foot cellulitis with self-drained abscess. 2. Diabetes. 3. Systemic inflammatory response syndrome with resolved leukocytosis. PLAN: The patient remains stable. Wound culture preliminary growing Staphylococcus aureus. Contin ue present care, antibiotics. Await for final cultures. Anticipate discharge home on oral Bactrim for 2 weeks. Follow with podiatry. Dictated By: REX NOBLE UTILIZATION SUPERVISOR for DOUGIE PHELPS MD NI/NTS Conf#: [id number] DID#: [id number] CC: CHERRI LOVETT MD;*EndCC*
[2016-09-03] MEDS ORDERED: LABETALOL HCL 20MG INJ IV SCH (20:00)
[2016-09-03] MEDS: hydrALAzine 20 MG INJ IV PRN (20:19)
[2016-09-03] MEDS ORDERED: AMLODIPINE 5 MG TAB PO ONE (20:30)
[2016-09-03] MEDS: INSULIN GLARGINE [LANtus] 3 ML PEN SC SCH (20:31)
[2016-09-03] MEDS: MUPIROCIN 2% 22 GM OINT TOP SCH (21:00)
[2016-09-04 00:05] VITALS: BP 114/74; PULSE 89
[2016-09-04 00:18] VITALS: BP 114/74; RESP 18
[2016-09-04] MEDS ORDERED: ACCUCHECK AT 2AM (Patients on SS coverage) XX SCH (02:00)
--- NOTE | 2016-09-04 04:09 | CONS ---
DATE OF ADMISSION: 08/31/2016 DATE OF CONSULTATION: 09/03/2016 TYPE OF CONSULTATION: Podiatry. REFERRING PHYSICIAN: Dr. Franc Bowling REASON FOR CONSULTATION: Left foot infection. HISTORY OF PRESENT ILLNESS: This is a 56-year-old gentleman who sustained a puncture wound with a screw over a month ago, subsequently treated with oral antibiotics. He was readmitted due to redness and pain. The patient has been seen by ID and ortho, initiated on vancomycin and Levaquin. The patient's preliminary cultures with Staphylococcus aureus. The patient has hypertension. Denies any fever, nausea, vomiting. Pain persists to the left foot. Prior radiographs which were negative for any radiopaque foreign body. The patient is pending transfer to [facility]. PAST MEDICAL HISTORY: Includes diabetes type 2, hypertension. ALLERGIES: NO KNOWN DRUG ALLERGIES. MEDICATIONS 1. Diovan 325 mg p.o. daily. 2. Gabapentin 600 mg p.o. b.i.d. 3. Aspirin 81 mg daily. 4. Ranitidine 150 mg p.o. daily. SOCIAL HISTORY: One glass of wine weekly. History of tobacco use. PHYSICAL EXAMINATION: VITAL SIGNS: Temperature 98.2, pulse 82, respiratory 18, blood pressure 133/75 , pulse oximetry is 99% on room air. GENERAL: The patient is awake, alert. No acute distress. HEAD: Normocephalic, atraumatic. Trachea is midline. No evidence of JVD. LUNGS: Regular respirations. EXTREMITIES: The patient's left foot with presence of hematoma, 2+ DP, PT pulse. Skin is dry. There is ascending erythema along the medial arch. The patient with decreased protective sensation. Hematoma present. CULTURES: Preliminary cultures are positive for Staph aureus. LABORATORY DATA: WBC 7.8, hemoglobin 10.5, hematocrit 31.9, platelets 222. Sodium 141, potassium 4, chloride 106, CO2 27, BUN 14, creatinine 0.9, glucose is 225. RADIOGRAPHIC DATA: No evidence of radiopaque foreign object. ASSESSMENT: 1. Left foot cellulitis. 2. Left foot hematoma. 3. History of a puncture wound with a screw. 4. Failed oral antibiotics. 5. Diabetes type 2, poorly controlled. 6. Diabetes type 2 with peripheral neuropathy. PLAN: The patient is seen and evaluated, reviewed radiographs and labs. Suspect deep hematoma or abscess. The patient consented for incision and drainage. Procedure performed at bedside. The foot was cleansed with Betadine , and using a #11 blade, hematoma was incised and blood evacuated. Cultures were obtained. Upon further exploration, there was tunneling wound which appeared to have punctured through the deep fascia. All nonviable tissue, subcutaneous tissue, and fascia was debrided excisionally. The patient's ulceration measured 2 cm x 1 cm with a depth of about 3 cm and was irrigated with Betadine and packed open with gauze dressings. The patient tolerated procedure well. Continue current antibiotics. Further recommendations once the cultures obtained. The patient has a deep wound and will take some time to heal. Nursing recommendations are given. Daily cleansing with chlorhexidine and application of topical antimicrobial ointment. The patient is pending transfer to [facility]. Daily wound care is recommended. Dictated By: ERMA LADD/ADARSH Conf#: [id number] DID#: [id number] CT
[2016-09-04] MEDS: VANCOMYCIN 1 GM in NS 250 ML IVPB SCH (05:32)
[2016-09-04] MEDS: LEVOFLOXACIN 500 MG TAB PO SCH (05:34)
[2016-09-04 06:20] VITALS: BP 141/83; PULSE 100
[2016-09-04] MEDS: GABAPENTIN 300 MG CAP PO SCH (08:49)
[2016-09-04] MEDS: CHOLECALCIFEROL 2,000 UNIT CAP PO SCH (08:49)
[2016-09-04] MEDS: VALSARTAN 160 MG TAB PO SCH (08:49)
[2016-09-04] MEDS: MUPIROCIN 2% 22 GM OINT TOP SCH (08:50)
[2016-09-04] MEDS: ENOXAPARIN 40 MG/0.4 ML SYG SC SCH (08:52)
[2016-09-04] MEDS ORDERED: AMLODIPINE 5 MG TAB PO SCH (09:00)
[2016-09-04] MEDS ORDERED: AMLODIPINE 5 MG TAB GTB SCH ×2 (09:00)
[2016-09-04] MEDS: INSULIN ASPART [NOVOLOG] 3 ML PEN SC SCH ×3 (09:01→17:41)
[2016-09-04 09:09] VITALS: BP 127/75; RESP 18
--- NOTE | 2016-09-04 12:39 | CONS ---
Date/Time of Note Date/Time of Note DATE: 09/04/16 TIME: 12:38 Assessment/Plan Assessment/Plan Chief Complaint/Hosp Course SUBJECTIVE: No acute changes. The patient is alert, ambulating with PT, nad, no fevers MICROBIOLOGY: Wound culture growing MSSA ANTIMICROBIALS: The patient is on: 1. IV vancomycin. 2. Levaquin. PHYSICAL EXAMINATION: GENERAL: Well-developed, middle-aged man who is alert, in no distress. HEENT: Head atraumatic, normocephalic. Sclerae anicteric. Buccal mucosa pink. NECK: Supple. CHEST: Rise symmetrical. Breath sounds clear. HEART: S1, S2. ABDOMEN: Soft. Bowel tones present. EXTREMITIES: No cyanosis. Again, left foot with erythema, no drainage, on the sole. ASSESSMENT: 1. Left foot cellulitis with self-drained abscess. 2. Diabetes. 3. Systemic inflammatory response syndrome with resolved leukocytosis. PLAN: The patient remains stable. Luther Hopkins, keep on PO Levaquin for 2 weeks, podiatry rec-s [facility] staff Problems: Consultation Date/Type/Reason Admit Date/Time Aug 31, 2016 at 23:48 Initial Consult Date Type of Consultation: ID Exam/Review of Systems Vital Signs Vitals Vital Signs Date Time Temp Pulse Resp B/P Pulse Ox O2 Delivery O2 Flow Rate FiO2 09/04/16 09:09 97.8 97 18 127/75 97 09/01/16 20:15 Room Air Intake and Output 09/03/16 09/03/16 09/04/16 15:00 23:00 07:00 Intake Total 250 ml 1640 ml 800 ml Balance 250 ml 1640 ml 800 ml Results Result Diagram: 09/03/16 0430 09/03/16 0430 Results 24 hrs Laboratory Tests Test 09/03/16 12:42 09/03/16 17:43 09/03/16 20:27 09/04/16 01:38 Bedside Glucose 174 225 H 218 274 H Test 09/04/16 08:45 Bedside Glucose 206 Medications Medications Current Medications Ondansetron HCl (Zofran Inj) 4 mg Q6H PRN IV NAUSEA AND/OR VOMITING; Start at 01:00 Acetaminophen (Tylenol Tab) 650 mg Q6H PRN PO PAIN LEVEL 1-3 OR FEVER Last administered on 09/01/16t 15:05; Admin Dose 650 MG; Start 09/01/16 at 01:00 Acetaminophen/ Hydrocodone Bitart ([place] (5/325)) 1 tab Q6H PRN PO MODERATE PAIN LEVEL 4-6 Last administered on 09/01/16 21:35; Admin Dose 1 TAB; Start at 01:00 Morphine Sulfate (morphine) 2 mg Q4H PRN IV SEVERE PAIN LEVEL 7-10 Last administered on 09/03/16 20:17; Admin Dose 2 MG; Start 09/01/16 at 01:00 Docusate Sodium (Colace) 100 mg Q12H PRN PO CONSTIPATION; Start 09/01/16 at 01: 00 Magnesium Hydroxide (Milk Of Mag) 30 ml DAILY PRN PO CONSTIPATION; Start at 01:00 Zolpidem Tartrate (Ambien) 5 mg QHS PRN PO SLEEP; Start 09/01/16 at 01:00 Aspirin (Halfprin) 81 mg PRN PRN PO IF NEEDED; Start 09/01/16 at 01:00 Gabapentin (Neurontin) 600 mg BID PO Last administered on 09/04/16 08:49; Admin Dose 600 MG; Start 09/01/16 at 09:00 Ranitidine HCl (Zantac) 150 mg PRN PRN PO HEARTBURN; Start 09/01/16 at 01:00 Valsartan (Diovan) 320 mg QAM PO Last administered on 09/04/16 08:49; Admin Dose 320 MG; Start 09/01/16 at 09:00 Insulin Glargine (Lantus) 15 unit DAILY@20 SC Last administered on 09/03/16 20 :31; Admin Dose 15 UNIT; Start 09/01/16 at 01:00 Hydralazine HCl (Apresoline) 10 mg Q6H PRN IV ELEVATED SYSTOLIC BP Last administered on 09/03/16 20:19; Admin Dose 10 MG; Start 09/01/16 at 02:50 Enoxaparin Sodium 40 mg 40 mg DAILY SC Last administered on 09/04/16 08:52; Admin Dose 40 MG; Start 09/02/16 at 10:00 Ferric Sodium Gluconate Complex/ Sodium Chloride (Ferrlecit/NS) 110 ml @ 110 mls/hr Q24H IVPB Last administered on 09/03/16 15:43; Admin Dose 110 MLS/HR; Start 09/02/16 at 15:00; Stop 09/06/16 at 15:59 Cholecalciferol (Vitamin D) 2,000 unit DAILY PO Last administered on 09/04/16 08:49; Admin Dose 2,000 UNIT; Start 09/02/16 at 12:30 Levofloxacin (Levaquin) 500 mg DAILY@06 PO Last administered on 09/04/16 05:34 ; Admin Dose 500 MG; Start 09/03/16 at 06:00 Miscellaneous Information 1 ea NOTE XX ; Start 09/03/16 at 07:00 Glucose (Glutose) 15 gm Q15M PRN PO DECREASED GLUCOSE; Start 09/03/16 at 07:00 Glucose (Glutose) 22.5 gm Q15M PRN PO DECREASED GLUCOSE; Start 09/03/16 at 07: 00 Dextrose (D50w Syringe) 25 ml Q15M PRN IV DECREASED GLUCOSE; Start 09/03/16 at 07:00 Dextrose (D50w Syringe) 50 ml Q15M PRN IV DECREASED GLUCOSE; Start 09/03/16 at 07:00 Glucagon (Glucagen) 1 mg Q15M PRN IM DECREASED GLUCOSE; Start 09/03/16 at 07:00 Glucose 15 gm 15 gm Q15M PRN BUCCAL DECREASED GLUCOSE; Start 09/03/16 at 07:00 Vancomycin HCl (Vancocin) 250 ml @ 125 mls/hr Q12H IVPB Last administered on 05:32; Admin Dose 125 MLS/HR; Start 09/03/16 at 18:00 Mupirocin (Bactroban) 1 applic BID TOP Last administered on 09/04/16 08:50; Admin Dose 1 APPLIC; Start 09/03/16 at 21:00 Diagnostic Test (Pha) (Accu-Chek) 1 ea 02 XX Last administered on 09/04/16 01: 52; Admin Dose 1 EA; Start 09/04/16 at 02:00 Amlodipine Besylate (Norvasc) 5 mg HS PO ; Start 09/04/16 at 09:00 REX NOBLE NP Sep 04, 2016 12:39
--- NOTE | 2016-09-04 13:28 | PDOCDIS ---
Discharge Instructions CONDITION Patient Condition: Good HOME CARE INSTRUCTIONS: Special Diet: DIABETIC ACTIVITY: Activity Restrictions: Slowly Increase Activity Rest between Activity Avoid heavy lifting Keep Limb Elevated FOLLOW UP/APPOINTMENTS Follow-up Plan Follow-up with podiatry as outpatient DANY LARES MD Sep 04, 2016 13:28
[2016-09-04] MEDS ORDERED: HYDR-906 PO (13:31)
[2016-09-04] MEDS ORDERED: LEVO500T72 PO (13:31)
--- NOTE | 2016-09-04 13:37 | DS ---
Date/Time of Note Date/Time of Note DATE: 09/04/16 TIME: 13:32 Discharge Summary Admission/Discharge Info Admit Date/Time Aug 31, 2016 at 23:48 Discharge Date/Time 09/04/16 Discharge Diagnosis 1. Left foot plantar area cellulitis. Status post vancomycin, patient will be discharged on oral Levaquin. Status post I&D of the left foot abscess 3. Type 2 diabetes mellitus. Continue Lantus and metformin 4. Essential hypertension. Well-controlled on medical management 5. Diabetic neuropathy. Continue gabapentin. 6. Normocytic normochromic anemia. Stable Patient Condition: Good Consults 1 podiatry 2 infectious disease Hospital Course The patient is a pleasant 56-year-old male with a history of insulin requiring diabetes, hypertension. The patient presents with increasing left foot pain on the bottom of his foot with redness and fever. The patient had a puncture wound in his left foot with a nail 1 month ago. He was treated with Bactrim and Keflex at that time, and it seemed to resolve but then got worse. In regards to diabetes, he states at times he takes insulin and at times he takes metformin. Upon admission he was found to have uncontrolled diabetic mellitus and his hemoglobin A1c was found to be at 11. Patient was placed on Lantus, insulin sliding scale and low-carb diet. Patient was seen and evaluated by orthopedic surgeon and he requested the patient to be seen by podiatry. Patient was also seen and evaluated by infectious disease doctor and he was placed on IV vancomycin. After evaluation by podiatry patient had a bedside I& D which he tolerated procedure well and he has been transitioned to oral Levaquin by infectious disease doctor. At this time patient is medically stable to be discharged home with a close follow-up with podiatry as outpatient. Home Meds Active Scripts Hydrocodone/Acetaminophen ([place] 5-325 Tablet) 1 Each Tablet, 1 EACH PO Q6H Y for PAIN, #1 TAB Prov:DANY LARES MD 09/04/16 Levofloxacin* (Levaquin*) 500 Mg Tablet, 500 MG PO DAILY@06, #14 TAB Prov:DANY LARES MD 09/04/16 Reported Medications Valsartan* (Diovan*) 320 Mg Tablet, 320 MG PO QAM, TAB 08/31/16 Gabapentin* (Gabapentin*) 600 Mg Tablet, 600 MG PO BID, #60 TAB 08/31/16 Metformin* (Glucophage*) 1,000 Mg Tablet, 1000 MG PO BID, #60 TAB 08/31/16 Aspirin* (Aspirin* EC) 81 Mg Tablet.dr, 81 MG PO PRN, TAB 08/31/16 Ranitidine Hcl* (Ranitidine Hcl*) 150 Mg Tablet, 150 MG PO PRN, #30 TAB 08/31/16 Insulin Glargine* (Lantus*) 100 Unit/Ml Soln, 25 UNIT SC QAM Y for PRN, #1 VIAL 08/31/16 Discontinued Scripts Cephalexin* (Keflex*) 500 Mg Capsule, 500 MG PO BID for 7 Days, CAP Prov:BARBRA DURAN 07/23/16 Sulfamethoxazole/Trimethoprim* (Bactrim Ds* Tablet) 1 Each Tablet, 1 TAB PO BID , #7 TAB Prov:BARBRA DURAN 07/23/16 Primary Care Provider Jayy Tellez Time spent on discharge: > 30 minutes Pending Labs Laboratory Tests Test 09/03/16 17:43 09/03/16 20:27 09/04/16 01:38 09/04/16 08:45 Bedside Glucose 225mg/dL (70-220) 218mg/dL (70-220) 274mg/dL (70-220) 206mg/dL (70-220) Test 09/04/16 12:51 Bedside Glucose 229mg/dL (70-220) DANY LARES MD Sep 04, 2016 13:37
[2016-09-04] MEDS: SOD FERRIC GLUC COMPLX 125 MG in SOD CHLORIDE 0.9% 100 ML IVPB SCH (15:00)
== END 2016-09-04 18:45 | disposition home health service (06) | DRG 854 ==
LOC: FTE 19:26 → MS1 23:48
PROVIDERS: ADMIT Internal Medicine; ATTEND Internal Medicine
PROC: 0JBR0ZZ Excision of Left Foot Subcutaneous Tissue and Fascia, Open Approach (ICD-10-PCS; principal; 2016-09-03)
DX: A41.9 Sepsis, unspecified organism (principal); N17.9 Acute kidney failure, unspecified; E11.22 Type 2 diabetes mellitus with diabetic chronic kidney disease; E11.40 Type 2 diabetes mellitus with diabetic neuropathy, unspecified; E11.65 Type 2 diabetes mellitus with hyperglycemia; S91.342A Puncture wound with foreign body, left foot, initial encounter; I12.9 Hypertensive chronic kidney disease with stage 1 through stage 4 chronic kidney disease, or unspecified chronic kidney disease; D64.9 Anemia, unspecified; L03.116 Cellulitis of left lower limb; E87.1 Hypo-osmolality and hyponatremia; N18.9 Chronic kidney disease, unspecified; W45.0XXA Nail entering through skin, initial encounter; Y93.89 Activity, other specified; Y92.89 Other specified places as the place of occurrence of the external cause; Y99.8 Other external cause status; Z79.4 Long term (current) use of insulin
CPT/HCPCS: 36415; 71010; 80048; 80053; 80061; 80202; 82306; 82652; 82728; 82962; 83036; 83540; 83605; 83735; 84100; 85025; 85610; 85730; 87040; 87070; 96374; 96375; 97162; J0360; J1650; J1815; J2270; J2543; J2916; J3370; J7030; J7050

== ENCOUNTER 2017-08-02 18:30 | Emergency (ER) | END 2017-08-03 05:21 | disposition home or self-care (01) ==